=== PATIENT | female | born 1970 | race African-American/Black ===

== ENCOUNTER 2017-09-28 19:41 | Emergency (ER) | payer SELFPAY ==
--- NOTE | 2017-09-28 20:31 | NUR ---
CALLED PT IN [place], NO RESPONSE
--- NOTE | 2017-09-28 21:12 | NUR ---
CALLED PT IN [place], NO RESPONSE
--- NOTE | 2017-09-28 21:15 | NUR ---
CALLED PT IN [place], NO RESPONSE
== END 2017-09-28 21:16 | disposition left against medical advice (07) ==
LOC: ER 19:44
DX: Z53.21 Procedure and treatment not carried out due to patient leaving prior to being seen by health care provider (principal)

== ENCOUNTER 2018-05-19 18:17 | Inpatient (IN) | payer BC ==
[~2018-05-19] VITALS: Ht 170.2 cm; Wt 69.4 kg
--- NOTE | 2018-05-19 18:18 | NUR ---
RECIEVED PT TO ED BED 01. AMBULATORY TO ED BED 01. PT WAS BB FAMILY FOR SUDDEN ONSET OF LEFT SIDED WEAKNESS STARTED 30 MIN AGO WHILE AT HOME DEPOT. ACCDG TO FAMILY, PT SPEAKING SLURRED. PT IS A/OX3. STS SHE HAS A HISTORY OF HIGH CHOLESTEROL. GOWNED AND PLACED ON CONT MONITORING. ALL NEEDS ARE ATTENDED, KEPT COMFORTABLE. ON CLOSE MONITORING.
--- NOTE | 2018-05-19 18:26 | NUR ---
CALLED CODE STROKE ER BED 1
--- NOTE | 2018-05-19 18:27 | NUR ---
EKG AT BEDSIDE
[2018-05-19] MEDS ORDERED: IV NS 0.9% 500 ML BAG IV ONE (18:30)
--- NOTE | 2018-05-19 18:31 | NUR ---
PT WENT TO CT SCAN
[2018-05-19 18:35] LABS: BASOPHILS % (AUTO) 0.8 % (0.0-2.0); EOSINOPHILS % (AUTO) 3.8 % (0.0-6.0); HEMATOCRIT 40 % (33-45); HEMOGLOBIN 13.5 g/dL (11.5-14.8); LYMPHOCYTES # (AUTO) 1.5 /CMM (0.8-4.8); LYMPHOCYTES % (AUTO) 39.5 % (20.0-44.0); MEAN CORPUSCULAR HEMOGLOBIN 29 PG (26.0-33.0); MEAN CORPUSCULAR HGB CONC 33 g/dl (31.0-36.0); MEAN CORPUSCULAR VOLUME 86 fL (82-100); MONOCYTES # (AUTO) 0.4 /CMM (0.1-1.30); MONOCYTES % (AUTO) 10.2 % (2.0-12.0); NEUTROPHILS # (AUTO) 1.9 /CMM (1.8-8.9); NEUTROPHILS % (AUTO) 45.7 % (43.0-81.0); PLATELET COUNT (AUTO) 278 /CMM (150-450); RDW COEFFICIENT OF VARIATION 13.2 (11.5-15.0); RED BLOOD CELL COUNT(AUTO) 4.66 MIL/uL (4.0-5.2); WHITE BLOOD COUNT (AUTO) 3.9 K/uL (4.3-11.0)
--- NOTE | 2018-05-19 18:44 | NUR ---
CALLED [facility] FOR TELESTROKE. DR LANDIS WAS PAGED.
--- NOTE | 2018-05-19 18:45 | NUR ---
DR LANDIS CALLED BACK FOR DR LEON
[2018-05-19 18:46] LABS: CARBON DIOXIDE 32 mmol/L (21-32); CHLORIDE 104 mmol/L (98-107); CREATININE 0.9 mg/dL (0.6-1.3); GLUCOSE 85 mg/dL (74-106); POTASSIUM 4.2 mmol/L (3.5-5.1); SODIUM SERUM 138 mmol/L (136-145); UREA NITROGEN, BLOOD 10 mg/dL (7-18)
[2018-05-19 18:50] LABS: INR 0.97 (0.85-1.15)
[2018-05-19 18:53] LABS: BILIRUBIN,DIRECT 0.1 mg/dL (0.0-0.2)
[2018-05-19 18:54] LABS: ALANINE AMINOTRANSFERASE 33 U/L (12-78); ALBUMIN 3.5 g/dL (3.4-5.0); ALKALINE PHOSPHATASE 66 U/L (46-116); ASPARTATE AMINOTRANSFERASE 32 U/L (15-37); BILIRUBIN,TOTAL 0.7 mg/dL (0.2-1.0); TOTAL PROTEIN, SERUM 7.1 g/dL (6.4-8.2)
[2018-05-19 18:55] LABS: TROPONIN I < 0.017 ng/mL (0.00-0.056)
[2018-05-19 18:58] LABS: CHOLESTEROL 190 mg/dL (<200); HDL CHOLESTEROL 68 mg/dL (40-60); LDL 115 mg/dL (0-99); TRIGLYCERIDES 70 mg/dL (30-150)
--- NOTE | 2018-05-19 19:17 | NUR ---
PT IS STILL UNDECIDED ABOUT HAVING THE TPA DONE. WOULD LIKE TO CALL A FAMILY FRIEND TO HELP DECIDE. PT WAS INSTRUCTED TO LET THE STAFF KNOW SOON THEY HAVE COME INTO DECISION. DR LANDIS ON HOLD AT THIS TIME.
[2018-05-19] MEDS ORDERED: ASPIRIN 325 MG TABLET ONE (19:40)
[2018-05-19] MEDS ORDERED: ASPIRIN 325 MG TABLET PO ONE (20:00)
--- NOTE | 2018-05-19 20:02 | NUR ---
REPORT GIVEN TO JENNIE GUEVARA
--- NOTE | 2018-05-19 20:12 | NUR ---
PHYSICIST LIGHT AND OPTICS OPENING NOTES: RECEIVED PT FROM ED WITH AT BEDSIDE. PT ON ROOM AIR. NO SOB NOTED. NO S/S OF DISTRESS. IV ON R AC IS PATENT AND INTACT. CURRENTLY H/L. NO FACIAL DROOPING. PT ABLE TO VERBALIZE NEEDS. PT TO BE PLACED ON TELE BOX. CALL LIGHT WITHIN PT'S REACH. BED KEPT IN LOW, LOCKED POSITION, AND SIDE RAILS X 2UP. WILL CONTINUE TO MONITOR PT.
[2018-05-19 20:30] VITALS: BP 141/91
[2018-05-19] MEDS ORDERED: ACETAMINOPHEN 325 MG TABLET PO PRN (20:30)
[2018-05-19] MEDS ORDERED: MAGNESIUM HYDROXIDE 30 ML UDC PO PRN (20:30)
[2018-05-19] MEDS ORDERED: Z GUARD REMEDY 2 OZ OINT TP PRN (20:30)
[2018-05-19] MEDS ORDERED: HYDROCODONE/APAP 5/325MG 1 EACH TABLET PO PRN (20:30)
[2018-05-19] MEDS ORDERED: ONDANSETRON HCL/PF 4 MG/2 ML VIAL IVP PRN (20:30)
[2018-05-19] MEDS ORDERED: MAG HYDROX/AL HYDROX/SIMETH 30 ML UDC PO PRN (20:30)
[2018-05-19 20:59] LABS: BASOPHILS % (AUTO) 0.4 % (0.0-2.0); EOSINOPHILS % (AUTO) 3.4 % (0.0-6.0); HEMATOCRIT 39 % (33-45); HEMOGLOBIN 12.8 g/dL (11.5-14.8); LYMPHOCYTES # (AUTO) 1.7 /CMM (0.8-4.8); LYMPHOCYTES % (AUTO) 36.2 % (20.0-44.0); MEAN CORPUSCULAR HEMOGLOBIN 29 PG (26.0-33.0); MEAN CORPUSCULAR HGB CONC 33 g/dl (31.0-36.0); MEAN CORPUSCULAR VOLUME 88 fL (82-100); MONOCYTES # (AUTO) 0.3 /CMM (0.1-1.30); MONOCYTES % (AUTO) 6.8 % (2.0-12.0); NEUTROPHILS # (AUTO) 2.5 /CMM (1.8-8.9); NEUTROPHILS % (AUTO) 53.2 % (43.0-81.0); PLATELET COUNT (AUTO) 279 /CMM (150-450); RDW COEFFICIENT OF VARIATION 13.9 (11.5-15.0); RED BLOOD CELL COUNT(AUTO) 4.41 MIL/uL (4.0-5.2); WHITE BLOOD COUNT (AUTO) 4.7 K/uL (4.3-11.0)
--- NOTE | 2018-05-19 21:00 | NUR ---
FINANCIAL INVESTIGATOR NOTES: STROKE PACKET PROVIDED TO PT.
[2018-05-19] MEDS: BLOOD SUGAR DIAGNOSTIC 1 EACH STRIP IN SCH ×2 (21:04→23:12)
[2018-05-19 21:15] LABS: APPEARANCE,URINE CLEAR (CLEAR); BILIRUBIN,URINE NEGATIVE (NEGATIVE); BLOOD, URINE NEGATIVE Ery/uL (NEGATIVE); COLOR,URINE YELLOW (YELLOW); KETONES,URINE NEGATIVE (NEGATIVE); LEUKOCYTE ESTERASE ,URINE NEGATIVE (NEGATIVE); NITRITE, URINE NEGATIVE (NEGATIVE); PROTEIN,URINE NEGATIVE (NEGATIVE); UGLUCOSE NEGATIVE (NEGATIVE); UROBILINOGEN,URINE 0.2 EU/dL (0.2)
[2018-05-19 21:24] LABS: INR 1.01 (0.87-1.13)
[2018-05-19 21:27] LABS: THYROID STIMULATING HORMONE 1.783 uIU/mL (0.358-3.74)
[2018-05-19 21:30] LABS: ALBUMIN 3.3 g/dL (3.4-5.0); BILIRUBIN,TOTAL 0.6 mg/dL (0.2-1.0); CALCIUM, SERUM 8.7 mg/dL (8.5-10.1); POTASSIUM 3.6 mmol/L (3.5-5.1); TOTAL PROTEIN, SERUM 6.7 g/dL (6.4-8.2)
[2018-05-19] MEDS ORDERED: PROG100C15 PO (21:46)
--- NOTE | 2018-05-19 23:39 | NUR ---
DRY PAN CHARGER NOTES: DR. LOVELACE AT BEDSIDE.
[2018-05-20] VITALS: BP 124/72
[2018-05-20 04:00] VITALS: BP 103/67
[2018-05-20] MEDS: BLOOD SUGAR DIAGNOSTIC 1 EACH STRIP IN SCH ×5 (05:54→21:44)
[2018-05-20 06:38] LABS: BASOPHILS % (AUTO) 0.5 % (0.0-2.0); EOSINOPHILS % (AUTO) 4.5 % (0.0-6.0); HEMATOCRIT 38 % (33-45); LYMPHOCYTES # (AUTO) 1.7 /CMM (0.8-4.8); LYMPHOCYTES % (AUTO) 42.8 % (20.0-44.0); MEAN CORPUSCULAR HEMOGLOBIN 30 PG (26.0-33.0); MEAN CORPUSCULAR HGB CONC 34 g/dl (31.0-36.0); MEAN CORPUSCULAR VOLUME 88 fL (82-100); MONOCYTES # (AUTO) 0.2 /CMM (0.1-1.30); MONOCYTES % (AUTO) 6.1 % (2.0-12.0); NEUTROPHILS # (AUTO) 1.8 /CMM (1.8-8.9); NEUTROPHILS % (AUTO) 46.1 % (43.0-81.0); PLATELET COUNT (AUTO) 245 /CMM (150-450); RDW COEFFICIENT OF VARIATION 14.4 (11.5-15.0); RED BLOOD CELL COUNT(AUTO) 4.32 MIL/uL (4.0-5.2); WHITE BLOOD COUNT (AUTO) 3.9 K/uL (4.3-11.0)
[2018-05-20 06:46] LABS: INR 1.06 (0.87-1.13)
[2018-05-20 06:53] LABS: CALCIUM, SERUM 8.8 mg/dL (8.5-10.1); CREATININE 0.8 mg/dL (0.6-1.3); POTASSIUM 3.8 mmol/L (3.5-5.1)
--- NOTE | 2018-05-20 07:21 | NUR ---
SUPERVISOR YARD CLOSING NOTES: ALL NEEDS WERE ATTENDED AND ANTICIPATED FOR. PT KEPT CLEAN, DRY, AND COMFORTABLE. PT ON ROOM AIR AND TOLERATING WELL. PT AWAKE AND IS ON THE PHONE RIGHT NOW. PT ON TELE BOX AND READING SHOWS SR 80S. IV REMAINS INTACT. CURRENTLY H/L. CALL LIGHT WITHIN PT'S REACH. BED KEPT IN LOW, LOCKED POSITION, AND SIDE RAILS X 2UP. ENDORSED TO AM NURSE FOR YOGESH.
--- NOTE | 2018-05-20 07:30 | NUR ---
RN NOTES PATIENT A/OX4, VERBALLY RESPONSIVE, BREATHING EVEN AND UNLABORED, NO S/SX OF STROKE AT THIS TIME. PATIENT DENIES PAIN OR DISCOMFORT AT THIS TIME, NEEDS ATTENDED, CALL LIGHT WITHIN REACH, WILL CONTINUE TO MONITOR.
[2018-05-20 08:00] VITALS: BP 112/74
[2018-05-20] MEDS: ASPIRIN 325 MG TABLET PO SCH (08:30)
[2018-05-20] MEDS ORDERED: IRON150C5 PO (11:28)
--- NOTE | 2018-05-20 15:29 | NUR ---
Social service consult was requested by Dr. Valles for stroke. SW visited pt three times at bedside. Pt was alert and oriented x4 with her at bedside. Pt asked SW to return as she was on a phone call. SW returned twice thereafter, but patient and her were asleep. SW will follow up at a later time.
[2018-05-20 16:00] VITALS: BP 98/64
--- NOTE | 2018-05-20 18:23 | NUR ---
RN NOTES PATIENT A/OX4, NO S/SX OF STROKE OBSERVED, STROKE TEACHING DONE, PATIENT VERBALIZED UNDERSTANDING, PATIENT IS INDEPENDENT WITH ADLS, WAS SEEN AND EVALUATED BY PT/OT AND ST. NO S/SX OF HYPO/HYPERGLYCEMIA NOTED. NEEDS ATTENDED AND MET, CALL LIGHT WITHIN REACH, WILL ENDORSE TO HAND CANDLE DIPPER FOR YOGESH.
--- NOTE | 2018-05-20 19:39 | NUR ---
RECIEVED MS. TO ALERT AND ORIENTATED X4. MALE FRIEND AT HER SIDE. SHE IS AMBULATING THE CORRIDOR WITH A STEADY GAIT MOVING ALL EXTREMITIES NO DEFICIT NOTED INSTRUCTED HER TO NOT GET OOB W/O ASSIST AND REVIEVED THE CALL LIGHT SYSTEM WITH HER AND HER MALE FRIEND. SPEECH CLEAR
[2018-05-20 20:00] VITALS: BP 112/83
--- NOTE | 2018-05-20 20:15 | NUR ---
SAT WITH YOUSUF AT HER BEDSIDE AND ALLOWED HER TO ASK QUESTIONS ABOUT LIPTOR THE NEW MEDICATION BEING STARTED AND ASA AND HER DIET AND S/S OF STROKE. SHE STATED HER MOM HAD A STROKE 5 YEARS AGO THE 2ND ONE, AND SHE KNOWS ABOUT STROKES AND MEDICATION HER MOM WAS ON LIPITOR AND SHE READ ABOUT THE MEDICATION. SHE IS KNOWLEDGEABLE ABOUT STROKE WHEN I ASKED HER TO TELL ME WHAT SHE KNOWS ABOUT STROKE AND MEDICATION
[2018-05-20] MEDS ORDERED: ATORVASTATIN 40 MG TABLET PO SCH (22:00)
--- NOTE | 2018-05-21 06:02 | NUR ---
blood pressure at 2am was 208/100 hr 83 md matthew called and orders recieved. Clonidine 0.2 mg given po. blood pressure at 0500 149/100 hr 95 am hydralazone given. ms. kamara is asymptipmatic Addendum: 05/21/18 at 0629 by ELIJAH WELLS RN WRONG PATIENT CHARTED ON.
[2018-05-21] MEDS: BLOOD SUGAR DIAGNOSTIC 1 EACH STRIP IN SCH ×2 (06:26→06:28)
--- NOTE | 2018-05-21 06:32 | NUR ---
BLOOD SUGAR THIS AM 94. MS. TO SLEPT WELL THRU THE NIGHT. NO SOB NO C/O DIZZINES STROKE INFO AT THE BEDSIDE AND EARLIER IN THE EVENING I SAT WITH HER AND I FOUND OUT SHE IS VERY KNOWLEDGABLE ABOUT STROKES, AND HEARYS MEDS.
[2018-05-21 07:21] LABS: BASOPHILS % (AUTO) 0.5 % (0.0-2.0); EOSINOPHILS % (AUTO) 4.7 % (0.0-6.0); HEMATOCRIT 39 % (33-45); HEMOGLOBIN 13.1 g/dL (11.5-14.8); LYMPHOCYTES # (AUTO) 1.3 /CMM (0.8-4.8); MEAN CORPUSCULAR HEMOGLOBIN 30 PG (26.0-33.0); MEAN CORPUSCULAR HGB CONC 34 g/dl (31.0-36.0); MEAN CORPUSCULAR VOLUME 89 fL (82-100); MONOCYTES # (AUTO) 0.3 /CMM (0.1-1.30); MONOCYTES % (AUTO) 7.9 % (2.0-12.0); NEUTROPHILS # (AUTO) 1.6 /CMM (1.8-8.9); NEUTROPHILS % (AUTO) 47.9 % (43.0-81.0); PLATELET COUNT (AUTO) 244 /CMM (150-450); RDW COEFFICIENT OF VARIATION 13.6 (11.5-15.0); RED BLOOD CELL COUNT(AUTO) 4.36 MIL/uL (4.0-5.2); WHITE BLOOD COUNT (AUTO) 3.4 K/uL (4.3-11.0)
[2018-05-21 07:25] LABS: CALCIUM, SERUM 9.1 mg/dL (8.5-10.1); CREATININE 0.8 mg/dL (0.6-1.3); POTASSIUM 3.8 mmol/L (3.5-5.1)
[2018-05-21 07:38] LABS: C-REACTIVE PROTEIN 0.2 mg/dL (0.0-0.9)
--- NOTE | 2018-05-21 07:56 | NUR ---
MS RN OPENING NOTES RECEIVED PT FROM NIGHTSHIFT NURSE IN STABLE CONDITION. PT IS A/O X4. NO SOB OR SIGNS OF DISTRESS NOTED. BREATHING IS EVEN AND UNLABORED. PT DENIES ANY PAIN AT THIS TIME. NO WEAKNESS ASSESSED OR REPORTED BY PT. IV TO RIGHT AC NOTED TO BE PATENT AND INTACT. NO REDNESS OR SIGNS OF INFILTRATION NOTED. BED IN LOW LOCKED POSITION, SIDE RAILS UP X2, CALL LIGHT WITHIN REACH. WILL CONTINUE TO MONITOR
[2018-05-21 08:00] VITALS: BP 113/84
[2018-05-21] MEDS: ASPIRIN 325 MG TABLET PO SCH (08:45)
[2018-05-21] MEDS ORDERED: DOCUSATE SODIUM 100 MG CAPSULE PO SCH (09:00)
--- NOTE | 2018-05-21 09:43 | NUR ---
MS RN NOTES: STROKE EDUCATION PT WAS EDUCATED ON THE RISK FACTORS, S/S, TREATMENT, AND EMERGENT RESPONSES OF STROKE UTILIZING THE EDUCATIONAL MATERIALS PROVIDED IN THE STROKE PACKET. PT VERBALIZED FULL UNDERSTANDING
[2018-05-21] MEDS ORDERED: ASPI-992 PO (10:34)
[2018-05-21] MEDS ORDERED: ATOR40TA PO (10:34)
--- NOTE | 2018-05-21 12:20 | NUR ---
MS PEOPLESOFT TALEO MANAGER NOTES: PT WAS DISCHARGED FROM FACILITY IN STABLE CONDITION. ALL NEEDS WERE MET DURING SHIFT AND ORDERS CARRIED OUT ACCORDINGLY. ALL DUE MEDS GIVEN. BELONGINGS VERIFIED PRIOR TO D/C. D/C INSTRUCTIONS AND EDUCATION PROVIDED UTILIZING EXITCARE MATERIALS. PT WAS PROVIDED WITH A PRESCRIPTION FOR ASPIRIN AND LIPITOR ALONG WITH A REMINDER FOR HER F/U APPOINTMENT AT THE CLINIC. IV WAS SUCCESSFULLY REMOVED WITH CATHETER TIP INTACT. PT SIGNED ALL D/C PAPERWORK. COPIES MADE AND PLACED IN PT'S CHART. PT WAS ESCORTED TO THE MAIN LOBBY BY THE BAND LEADER AND LEFT VIA PRIVATE VEHICLE
[2018-05-21] MEDS ORDERED: GADODIAMIDE 2.5 MMOL/5 ML VIAL IJ ONE (12:28)
[2018-05-22 08:12] LABS: HOMOCYSTEINE, PLASMA 9.1 umol/L (0.0-15.0); IMMUNOGLOBULIN A, SERUM 173 mg/dL (87-352); IMMUNOGLOBULIN G, SERUM 1001 mg/dL (700-1600); IMMUNOGLOBULIN M, SERUM 88 mg/dL (26-217)
[2018-05-22 11:13] LABS: *SPE A/G RATIO 1.2 (0.7-1.7); *SPE ALBUMIN 3.3 g/dL (2.9-4.4); *SPE ALPHA-1-GLOBULIN 0.2 g/dL (0.0-0.4); *SPE ALPHA-2-GLOBULIN 0.7 g/dL (0.4-1.0); *SPE BETA GLOBULIN 0.9 g/dL (0.7-1.3); *SPE GLOBULIN, TOTAL 2.8 g/dL (2.2-3.9); *SPE M-SPIKE Not Observed g/dL (Not Observed)
[2018-05-23 11:09] LABS: *ANTITHROMBIN III AG 83 % (72-124); *DILUTE PROTHROMBIN TIME (dPT) 41.6 sec (0.0-55.0); *PTT-LA 32.4 sec (0.0-51.9); *THROMBIN TIME 17.1 sec (0.0-23.0); *dPT CONFIRM RATIO 0.99 Ratio (0.00-1.40); *dRVVT 34.8 sec (0.0-47.0); PROTEIN C ACTIVITY 109 % (73-180)
[2018-05-23 14:16] LABS: *CARD ANTI-CARDIOLIPIN AB IgG <9 GPL U/mL (0-14); *CARD ANTI-CARDIOLIPIN AB IgM <9 MPL U/mL (0-12)
[2018-05-23 15:12] LABS: *INTERPRETATION Comment: (.)
== END 2018-05-21 12:29 | disposition home or self-care (01) | DRG 69 ==
LOC: ER 18:22 → TELE 20:12 → MED 05-20 10:07
PROVIDERS: ADMIT Internal Medicine; ATTEND Internal Medicine
DX: G45.9 Transient cerebral ischemic attack, unspecified (principal); E87.1 Hypo-osmolality and hyponatremia; D68.59 Other primary thrombophilia; N93.8 Other specified abnormal uterine and vaginal bleeding; D50.9 Iron deficiency anemia, unspecified; E78.5 Hyperlipidemia, unspecified; Z82.3 Family history of stroke; D72.819 Decreased white blood cell count, unspecified; Z79.82 Long term (current) use of aspirin; Z79.899 Other long term (current) drug therapy; J32.3 Chronic sphenoidal sinusitis; E86.1 Hypovolemia
CPT/HCPCS: 36415; 70450-TC; 70492; 70544-TC; 70551-TC; 71045-TC; 80048-TC; 80053-TC; 80061-TC; 80076-TC; 80305; 81000-TC; 81240; 82746; 82784; 82962-TC; 83090; 83880; 84155; 84165; 84439-TC; 84443-TC; 84484-TC; 85025-TC; 85300; 85301; 85303; 85613; 85652-TC; 85670; 85705; 85730-TC; 85732; 86140-TC; 86147; 86334; 86431-TC; 87081-TC; 92611-TC; 93307-TC; A4606; J7040; Z7610

== ENCOUNTER 2018-12-01 21:43 | Inpatient (IN) | payer BC ==
[~2018-12-01] VITALS: Ht 171.4 cm; Wt 70.3 kg
[~2018-12-01 21:43] MED LIST: ASPI-992 PO; ATOR40TA PO; IRON150C5 PO
[2018-12-01 22:30] VITALS: BP 127/71
--- NOTE | 2018-12-01 22:30 | NUR ---
RN ADMITTING NOTES Pt IS A DIRECT ADMIT FROM [facility]. HERE FOR OBSERVATION S/P TIA AT HOME. RECEIVED REPORT FROM ROSE HILL RN CONCHA. PER ROSE HILL REPORT CT SCAN OF HEAD WAS NEGATIVE; TIA RESOLVED ON ITS OWN. Pt ARRIVED TO THE FLOOR VIA AMBULANCE GURNEY. Pt IS A/OX4, VERBAL, ABLE TO MAKE NEEDS KNOWN. AT BEDSIDE. Pt IS ABLE TO TALK AND ANSWER QUESTIONS WITH NO SLURRED SPEECH. Pt IS ABLE TO MOVE ALL EXTREMITIES. IV ACCESS NUMERICAL CONTROL NESTING OPERATOR: LAC #20G & RAC #20G. ON TELE. SAFETY MEASURES IN PLACE. BED LOW, LOCKED, HOB ELEVATED, SIDE RAILS UP, CALL LIGHT AND BEDSIDE TABLE WITHIN REACH. WILL CONTINUE TO MONITOR Pt's CONDITION AND SAFETY THROUGHOUT THE NIGHT.
[2018-12-02] MEDS ORDERED: MAG HYDROX/AL HYDROX/SIMETH 30 ML UDC PO PRN
[2018-12-02] MEDS ORDERED: ACETAMINOPHEN 325 MG TABLET PO PRN
[2018-12-02 04:00] VITALS: BP 119/75
[2018-12-02 06:25] LABS: BASOPHILS % (AUTO) 1.2 % (0.0-2.0); EOSINOPHILS % (AUTO) 6.7 % (0.0-6.0); HEMATOCRIT 36 % (33-45); HEMOGLOBIN 12.1 g/dL (11.5-14.8); LYMPHOCYTES # (AUTO) 1.5 /CMM (0.8-4.8); LYMPHOCYTES % (AUTO) 41.8 % (20.0-44.0); MEAN CORPUSCULAR HGB CONC 34 g/dl (31.0-36.0); MEAN CORPUSCULAR VOLUME 88 fL (82-100); MONOCYTES # (AUTO) 0.3 /CMM (0.1-1.30); MONOCYTES % (AUTO) 8.1 % (2.0-12.0); NEUTROPHILS # (AUTO) 1.5 /CMM (1.8-8.9); NEUTROPHILS % (AUTO) 42.2 % (43.0-81.0); PLATELET COUNT (AUTO) 277 /CMM (150-450); RED BLOOD CELL COUNT(AUTO) 4.09 MIL/uL (4.0-5.2); WHITE BLOOD COUNT (AUTO) 3.5 K/uL (4.3-11.0)
--- NOTE | 2018-12-02 06:30 | NUR ---
RN NOTES MRSA SWAB COLLECTED AND SENT WITH LAB.
[2018-12-02 06:52] LABS: CALCIUM, SERUM 8.6 mg/dL (8.5-10.1); CREATININE 0.8 mg/dL (0.6-1.3); POTASSIUM 3.9 mmol/L (3.5-5.1)
--- NOTE | 2018-12-02 06:53 | NUR ---
RN NOTES AC ACCUCHECK BG 121. NO INSULIN COVERAGE NEEDED.
[2018-12-02 07:02] LABS: THYROID STIMULATING HORMONE 1.541 uIU/mL (0.358-3.74)
[2018-12-02] MEDS: PANTOPRAZOLE 40 MG TABLET.DR PO SCH (07:12)
[2018-12-02] MEDS: BLOOD SUGAR DIAGNOSTIC 1 EACH STRIP IN SCH ×4 (07:12→21:36)
--- NOTE | 2018-12-02 07:36 | NUR ---
RN CLOSING NOTES NO SIGNIFICANT CHANGES IN Pt's CONDITION. Pt REMAINED STABLE THROUGHOUT THE SHIFT. NO S/S OF ACUTE DISTRESS OR SOB NOTED DURING THE NIGHT. RESPIRATIONS EVEN AND UNLABORED. SAFETY MEASURES IN PLACE. ENDORSED TO DAYSHIFT RN FOR Pt's YOGESH.
--- NOTE | 2018-12-02 07:40 | NUR ---
DOOR PATCHER OPENING NOTES PT IN BED, AWAKE, A/O X4; AMBULATORY. HOB ELEVATED. TOLERATING RA AT THIS MOMENT WITHOUT ACUTE RESPIRATORY DISTRESS. DENIES PAIN OR ANY DISCOMFORT AT THIS TIME. PIVS TO LAC G20 AND RACG20, BOTH FLUSHED WITH NS, INTACT AND PATENT. ON TELE MONITORING OF SR, HR OF 82. BED IN LOWEST, LOCKED POSITION WITH SR X2. WILL CONTINUE PLAN OF CARE.
[2018-12-02 08:00] VITALS: BP 107/68
[2018-12-02] MEDS: ASPIRIN EC 325 MG TABLET.DR PO SCH (09:05)
[2018-12-02] MEDS ORDERED: ATOR40TA PO (09:08)
[2018-12-02] MEDS ORDERED: ASPI-1169 PO (09:08)
[2018-12-02] MEDS ORDERED: GADODIAMIDE 5 MMOL/10 ML VIAL IJ ONE (09:13)
[2018-12-02] MEDS ORDERED: GADODIAMIDE 2.5 MMOL/5 ML VIAL IJ ONE (09:13)
[2018-12-02 16:00] VITALS: BP 120/71
--- NOTE | 2018-12-02 19:06 | NUR ---
MS RN CLOSING NOTES PT IN BED, AWAKE, A/O X4; AMBULATORY WITH BRP. HOB ELEVATED. TOLERATING RA AT THIS MOMENT WITHOUT ACUTE RESPIRATORY DISTRESS. DENIES PAIN OR ANY DISCOMFORT AT THIS TIME. PIVS TO LAC G20 AND RACG20, BOTH FLUSHED WITH NS, INTACT AND PATENT. HAD MRI OF HEAD, BRAIN AND NECK THIS AFTERNOON AROUND 1430 WITH CONTRAST. PT, OT AND ST EVALUATED PT THIS MORNING. PT CAME BACK AT THE UNIT AT AROUND 1600. KEPT CALL LIGHT AND FLUIDS KEPT WITHIN REACH. BED IN LOWEST, LOCKED POSITION WITH SR X2. WILL ENDORSE TO MANAGER TELEMARKETING NURSE FOR YOGESH..
[2018-12-02 20:00] VITALS: BP 131/80
--- NOTE | 2018-12-02 20:12 | NUR ---
RN NOTES PATIENT IS ALERT AND ORIENTED X4, STABLE ON ROOM AIR, NOTED USING TABLET WHILE IN BED, DENIES PAIN, NO HEADACHE, COMPLAINING OF TIREDNESS, SALINE LOCK ONLY, MRI DONE TODAY, NO INTRACRANIAL HEMORRHAGE WITH PATENT ARTERIES, ST EVAL DONE AND PASSED. KEPT SAFE, CALL LIGHT WITHIN REACH, AT THE BEDSIDE.
[2018-12-02 20:30] VITALS: BP 131/80
[2018-12-02] MEDS ORDERED: ATORVASTATIN 40 MG TABLET PO SCH (22:00)
--- NOTE | 2018-12-03 06:19 | NUR ---
RN NOTES PM SHIFT PATIENT IS ALERT AND ORIENTED X4, NO SOB, DENIES ANY PAIN, COMPLAINING OF GENERALIZED WEAKNESS, NEURO CHECK NEGATIVE, SPEECH IS CLEAR, NO DIFFICULTY DRINKING AND EATING, ACCUCHECK FOR MONITORING ONLY PATIENT IS PRE-DIABETIC, NO CHANGE OF CONDITION DURING SHIFT, SLEPT FOR 6 HOURS, NO AM LABS, CONTINUE ASA AND STATIN.
--- NOTE | 2018-12-03 07:10 | NUR ---
PT IS AWAKE A/O X4 . NO SOB, DENIES ANY PAIN, COMPLAINING OF GENERALIZED WEAKNESS, NEURO CHECK NEGATIVE, SPEECH IS CLEAR.SAFETY PRECAUTIONS IN PLACE WILL CONTINUE TO MONITOR
[2018-12-03] MEDS: BLOOD SUGAR DIAGNOSTIC 1 EACH STRIP IN SCH ×2 (07:38→12:00)
[2018-12-03 08:00] VITALS: BP 159/110
[2018-12-03] MEDS: ASPIRIN EC 325 MG TABLET.DR PO SCH (09:17)
[2018-12-03] MEDS: PANTOPRAZOLE 40 MG TABLET.DR PO SCH (09:17)
--- NOTE | 2018-12-03 14:30 | NUR ---
patient cleared for d/c to home by MD and neurologist.Patient alert and oriented x4, on room air, no distress, no chest pain , no headache. Discharge instructions and education provided to patient. Special attention on meds from [facility] group, patient cannot take any meds from this group. Patient verbalized understanding. Patient will see neurologist in one week, as well primary care provider. D/c materials provided including Imaging CD.Valuable form sighed, all belongings with the patient. IV lines removed, ID wrist band removed. Patient safely transferred to Offer[employer] car via wheelchair accompanied by ANCIENT ART CURATOR and .
[2018-12-03 16:00] VITALS: BP 106/66
== END 2018-12-03 16:35 | disposition home or self-care (01) | DRG 69 ==
LOC: TELE 22:11 → MED 12-02 12:42
PROVIDERS: ADMIT Nurse Practitioner Acute Care; ATTEND Hospitalist
DX: G45.9 Transient cerebral ischemic attack, unspecified (principal); D50.9 Iron deficiency anemia, unspecified; Z86.73 Personal history of transient ischemic attack (TIA), and cerebral infarction without residual deficits; Z82.3 Family history of stroke; G43.909 Migraine, unspecified, not intractable, without status migrainosus
CPT/HCPCS: 36415; 70492; 70544-TC; 70551-TC; 80048-TC; 80061-TC; 82962-TC; 84443-TC; 85025-TC; 85652-TC; 85730-TC; 87081-TC; 92611-TC; A9579; G0378